=== PATIENT | male | born 1980 | race Caucasian/White ===

== ENCOUNTER 2018-07-14 19:45 | Emergency (ER) | payer OTHER ==
[2018-07-14 19:52] VITALS: BP 147/91; PULSE 95; TEMP 98.3; BMI 26.0
--- NOTE | 2018-07-14 20:09 | PDOC ---
History of Present Illness - General Chief Complaint: Cold Symptoms Stated Complaint: THROAT PAIN,COUGH Time Seen by Provider: 07/14/18 20:04 - History of Present Illness Initial Comments: 07/14/18 20:05 37-year-old male without comorbidities presents for evaluation of sinus congestion 10 days without systemic symptoms. Past History - Past Medical History Allergies/Adverse Reactions: Allergies Allergy/AdvReac Type Severity Reaction Status Date / Time No Known Allergies Allergy Verified 07/14/18 19:49 Home Medications: Ambulatory Orders Amox-Tr/K Cl [Augmentin - 875Mg Tablet] 1 tab PO BID #20 tablet 07/14/18 Budesonide [Rhinocort Allergy] 1 spray NS ONCE #1 spray.pump 07/14/18 COPD: No - Suicide/Smoking/Psychosocial Hx Smoking History: Never smoked Review of Systems - Review of Systems Constitutional: No: Fever HEENTM: Yes: Nose Congestion *Physical Exam - Vital Signs Last Vital Signs Temp Pulse Resp BP Pulse Ox 98.3 F 95 H 18 147/91 99 07/14/18 19:49 07/14/18 19:49 07/14/18 19:49 07/14/18 19:49 07/14/18 19:49 - Physical Exam Comments: 07/14/18 20:05 HEAD: NC/AT EYES: Conjuntiva clear Ears: Canals and TM's normal NOSE: No d/c; injected turbinates THROAT: Moist mucous membrances, oral pharanx clear, uvula midline NECK: Supple without adenopathy CARDIAC: S1 S2 LUNGS: CTA Full and Equal breath sounds ABDOMEN: Soft NT ND MS: Full ROM in all joints without edema NEUROLOGIC: No gross sensory or motor deficits, NVID SKIN: Normal color and temperature no lesions or rashes Moderate Sedation - Procedure Monitoring Vital Signs: Procedure Monitoring Vital Signs Temperature 98.3 F 07/14/18 19:49 Pulse Rate 95 H 07/14/18 19:49 Respiratory Rate 18 07/14/18 19:49 Blood Pressure 147/91 07/14/18 19:49 O2 Sat by Pulse Oximetry (%) 99 07/14/18 19:49 *DC/Admit/Observation/Transfer Diagnosis at time of Disposition: Sinusitis - Discharge Dispostion Disposition: HOME Condition at time of disposition: Stable Decision to Admit order: No - Prescriptions Prescriptions: Amox-Tr/K Cl [Augmentin - 875Mg Tablet] 1 tab PO BID #20 tablet Budesonide [Rhinocort Allergy] 1 spray NS ONCE #1 spray.pump - Referrals Referrals: Bruce Aponte [Non Staff, Medical] - - Patient Instructions Printed Discharge Instructions: Sinusitis, DI for Sinusitis Additional Instructions: Please take the medication as directed. Return to the emergency room should symptoms worsen or go unresolved. Follow-up with your primary care physician in one to 2 days for further evaluation and treatment options. - Post Discharge Activity
== END 2018-07-14 20:44 | disposition home or self-care (01) ==
LOC: JERFT 19:45
DX: J32.9 Chronic sinusitis, unspecified (principal)
CPT/HCPCS: 99281-25

== ENCOUNTER 2020-11-12 14:29 | Emergency (ER) | payer OTHER ==
[2020-11-12 14:54] VITALS: BP 144/88; PULSE 82; TEMP 98.3; BMI 26.6
[2020-11-12] MEDS ORDERED: LIDOCAINE 5% TOPICAL PATCH TP ONE (15:36)
[2020-11-12] MEDS ORDERED: ACETAMINOPHEN 325 MG TABLET (FP) PO ONE (15:36)
[2020-11-12] MEDS ORDERED: KETOROLAC TROMETHAMINE 60 MG/2 ML VIAL IM ONE (15:36)
[2020-11-12] MEDS ORDERED: METHOCARBAMOL 500 MG TABLET PO ONE (15:37)
[2020-11-12] MEDS ORDERED: LIDOCAINE 5% TOPICAL PATCH ONE (15:58)
[2020-11-12] MEDS ORDERED: METHOCARBAMOL 500 MG TABLET ONE (15:58)
[2020-11-12] MEDS ORDERED: KETOROLAC TROMETHAMINE 30 MG/1 ML VIAL ONE (15:58)
[2020-11-12] MEDS ORDERED: ACETAMINOPHEN 500 MG TABLET (FP) ONE (15:59)
[2020-11-12] MEDS ORDERED: oxyCODONE HCL 5 MG TABLET PO ONE (16:45)
[2020-11-12] MEDS ORDERED: oxyCODONE HCL 5 MG TABLET ONE (16:59)
[2020-11-12] MEDS ORDERED: LIDOCAINE PATCH REMOVAL MC SCH (22:00)
== END 2020-11-12 17:45 | disposition home or self-care (01) ==
LOC: JERFT 14:29 → JER 14:29 → JERFT 17:45
PROC: 3E0233Z Introduction of Anti-inflammatory into Muscle, Percutaneous Approach (ICD-10-PCS; principal; 2020-11-12)
DX: M54.6 Pain in thoracic spine (principal)
CPT/HCPCS: 93005; 93010; 99284-25

== ENCOUNTER 2022-07-16 13:27 | Emergency (ER) | payer OTHER ==
[2022-07-16 13:40] VITALS: BP 139/84; PULSE 74; RESP 18; TEMP 97.4; BMI 27.3
[2022-07-16] MEDS ORDERED: METHOCARBAMOL 500 MG TABLET PO ONE (14:27)
[2022-07-16] MEDS ORDERED: KETOROLAC TROMETHAMINE 15 MG/ML VIAL IM ONE (14:27)
[2022-07-16] MEDS ORDERED: METHOCARBAMOL 500 MG TABLET ONE (14:33)
[2022-07-16] MEDS ORDERED: KETOROLAC TROMETHAMINE 15 MG/ML VIAL ONE (14:33)
== END 2022-07-16 14:39 | disposition home or self-care (01) ==
LOC: JER 13:27 → JERFT 13:27
PROC: 3E0233Z Introduction of Anti-inflammatory into Muscle, Percutaneous Approach (ICD-10-PCS; principal; 2022-07-16)
DX: M54.42 Lumbago with sciatica, left side (principal)
CPT/HCPCS: 99284-25